=== PATIENT | female | born 1945 | race Caucasian/White ===

== ENCOUNTER 2021-07-22 12:22 | Emergency (ER) | payer MEDICARE, OTHER ==
[2021-07-22] MEDS ORDERED: Sodium Chloride 0.9% 10 ML Syringe FLUSH PRN (12:42)
[2021-07-22] MEDS ORDERED: Lidocaine 2% Viscous Solution 15 ML Cup PO ONE (12:54)
[2021-07-22] MEDS ORDERED: Lidocaine 1% 30 ML SDV INJECT ONE (12:56)
--- NOTE | 2021-07-22 13:07 | EDM.PDOC ---
ED HPI GENERAL MEDICAL PROBLEM - General Chief Complaint: Headache Stated Complaint: FLU SYMPTOMS Time Seen by Provider: 07/22/21 12:40 Source of Information: Reports: Patient History Limitations: Reports: No Limitations - History of Present Illness INITIAL COMMENTS - FREE TEXT/NARRATIVE: 75 y/o F c/o 9/10 severe frontal knight for 1 week as well as R upper quad abd pn for the same duration. Has been vomiting daily and unable to keep anything down. Is fully vaccinated with Pfizer. The Knight is sharp bilateral over the frontal bone, constant, non radiating, no photophobia. No similar hx in the past. Was seen at [facility] by Tiffanie Dejesus and scheduled for an MRI next week. Abd pn is sharp constant, R upper quad, no change when eating, non radiating. Pt still has her gall bladder. Reports intermittent constipation and diarrhea. Urine has also been foul smelling lately. Pt reports incontinence of urine for years now. Headache Pain Score (Numeric/FACES): 10 - Related Data Allergies Allergy/AdvReac Type Severity Reaction Status Date / Time No Known Allergies Allergy Verified 07/22/21 12:36 Home Meds: Home Meds Chlorthalidone 12.5 mg PO DAILY 07/22/21 [History] LORazepam [Ativan] 0.5 mg PO ASDIRECTED 07/22/21 [History] Omeprazole 20 mg PO ASDIRECTED 07/22/21 [History] Zolpidem [Ambien] 5 mg PO BEDTIME 07/22/21 [History] Past Medical History - Past Health History Medical/Surgical History: Denies Medical/Surgical History Cardiovascular History: Reports: Hypertension Gastrointestinal History: Reports: GERD Psychiatric History: Reports: Anxiety Social & Family History - Tobacco Use Tobacco Use Status *Q: Unknown Ever Used Tobacco - Caffeine Use Caffeine Use: Reports: Coffee - Recreational Drug Use Recreational Drug Use: No ED ROS GENERAL - Review of Systems Review Of Systems: Comprehensive ROS is negative, except as noted in HPI. 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.) Nose: Normal Inspection, Normal Mucosa, No Blood Throat/Mouth: Normal Inspection, Normal Lips, Normal Teeth, Normal Gums, Normal Oropharynx, Normal Voice, No Airway Compromise Head Exam: Atraumatic, Normocephalic Neck: Supple Respiratory/Chest: No Respiratory Distress, Lungs Clear, Normal Breath Sounds, No Accessory Muscle Use, Chest Non-Tender Cardiovascular: Normal Peripheral Pulses, Regular Rate, Rhythm, No Edema, No Gallop, No JVD, No Murmur, No Rub GI/Abdominal: Soft, Tender (R upper quad, no organomegally) (Female) Exam: Deferred Rectal (Female) Exam: Deferred Neuro Exam (Abbreviated): Alert, Oriented, CN II-XII Intact, Normal Cognition, Normal Gait, Normal Reflexes, No Motor/Sensory Deficits Back Exam: Normal Inspection, Full Range of Motion, NT Extremities: Normal Inspection, Normal Range of Motion, Non-Tender, No Pedal Edema, Normal Capillary Refill Psychiatric: Normal Affect, Normal Mood Skin Exam: Warm, Dry, Intact, Normal Color, No Rash #1 Interpretation EKG Date: 07/22/21 Time: 12:55 Rhythm: NSR [place]: LAD-Left [place] Deviation P-Wave: Present QRS: Normal ST-T: Normal QT: Normal Course - Vital Signs Last Recorded V/S: Last Vital Signs Temp 97.1 F 07/22/21 12:32 Pulse 75 07/22/21 12:32 Resp 16 07/22/21 12:32 BP 140/76 07/22/21 12:32 Pulse Ox 99 07/22/21 12:32 - Orders/Labs/Meds Orders: Active Orders 24 hr Category Date Time Status Peripheral IV Insertion Adult [OM.PC] Routine Oth 07/22/21 12:43 Ordered Labs: Laboratory Tests 07/22/21 07/22/21 07/22/21 Range/Units 12:29 13:01 13:01 WBC 6.9 (5.0-10.0) 10^3/uL RBC 4.56 (4.2-5.4) 10^6/uL Hgb 13.8 (12.0-16.0) g/dL Hct 39.2 (37.0-47.0) % MCV 86.0 (80-100) fL MCH 30.3 (27.0-34.0) pg MCHC 35.2 H (33.0-35.0) g/dL Plt Count 330 (150-450) 10^3/uL Neut % (Auto) 67.7 (42.2-75.2) % Lymph % (Auto) 22.7 (20.5-50.1) % [place] % (Auto) 8.6 H (2-8) % Eos % (Auto) 0.9 L (1.0-3.0) % Baso % (Auto) 0.1 (0.0-1.0) % Sodium 134 L (136-145) mmol/L Potassium 3.4 L (3.5-5.1) mmol/L Chloride 97 L (98-107) mmol/L Carbon Dioxide 28 (21-32) mmol/L Anion Gap 12.4 (7-13) mEq/L BUN 12 (7-18) mg/dL Creatinine 0.71 (0.55-1.02) mg/dL Est Cr Clr Drug Dosing 71.19 mL/min Estimated GFR (MDRD) > 60 BUN/Creatinine Ratio 16.9 (No establ ref range) Glucose 101 H (70-99) mg/dL Lactic Acid (0.4-2.0) mmol/L Calcium 10.0 (8.5-10.1) mg/dL Phosphorus 2.9 (2.6-4.7) mg/dL Magnesium 1.7 L (1.8-2.4) mg/dL Total Bilirubin 0.5 (0.2-1.0) mg/dL AST 27 (15-37) U/L ALT 40 (14-59) U/L Alkaline Phosphatase 63 (46-116) U/L Lactate Dehydrogenase 231 (81-234) U/L C-Reactive Protein < 0.2 (0.0-0.9) mg/dL Total Protein 7.2 (6.4-8.2) g/dL Albumin 4.0 (3.4-5.0) g/dL Globulin 3.2 Albumin/Globulin Ratio 1.3 TSH, Ultra Sensitive 1.03 (0.36-3.74) uIU/mL SARS-CoV-2 RNA (RUSS) Negative (NEGATIVE) 07/22/21 Range/Units 13:01 WBC (5.0-10.0) 10^3/uL RBC (4.2-5.4) 10^6/uL Hgb (12.0-16.0) g/dL Hct (37.0-47.0) % MCV (80-100) fL MCH (27.0-34.0) pg MCHC (33.0-35.0) g/dL Plt Count (150-450) 10^3/uL Neut % (Auto) (42.2-75.2) % Lymph % (Auto) (20.5-50.1) % [place] % (Auto) (2-8) % Eos % (Auto) (1.0-3.0) % Baso % (Auto) (0.0-1.0) % Sodium (136-145) mmol/L Potassium (3.5-5.1) mmol/L Chloride (98-107) mmol/L Carbon Dioxide (21-32) mmol/L Anion Gap (7-13) mEq/L BUN (7-18) mg/dL Creatinine (0.55-1.02) mg/dL Est Cr Clr Drug Dosing mL/min Estimated GFR (MDRD) BUN/Creatinine Ratio (No establ ref range) Glucose (70-99) mg/dL Lactic Acid 0.6 (0.4-2.0) mmol/L Calcium (8.5-10.1) mg/dL Phosphorus (2.6-4.7) mg/dL Magnesium (1.8-2.4) mg/dL Total Bilirubin (0.2-1.0) mg/dL AST (15-37) U/L ALT (14-59) U/L Alkaline Phosphatase (46-116) U/L Lactate Dehydrogenase (81-234) U/L C-Reactive Protein (0.0-0.9) mg/dL Total Protein (6.4-8.2) g/dL Albumin (3.4-5.0) g/dL Globulin Albumin/Globulin Ratio TSH, Ultra Sensitive (0.36-3.74) uIU/mL SARS-CoV-2 RNA (RUSS) (NEGATIVE) Meds: Medications Discontinued Medications Generic Name Dose Route Start Last Admin Trade Name Freq PRN Reason Stop Dose Admin Sodium Chloride 1,000 mls @ 999 mls/hr 07/22/21 14:58 07/22/21 15:07 Normal Saline IV 07/22/21 15:58 999 mls/hr .BOLUS ONE Administration Iopamidol 100 ml 07/22/21 15:49 Iopamidol 612 Mg/Ml 100 Ml Bottle IVPUSH 07/22/21 15:50 ONETIME ONE Ketorolac Tromethamine 30 mg 07/22/21 14:58 07/22/21 15:07 Ketorolac 30 Mg/Ml Sdv IVPUSH 07/22/21 14:59 30 mg ONETIME ONE Administration Lidocaine HCl 15 ml 07/22/21 12:54 07/22/21 13:55 Lidocaine 2% Viscous Solution 15 Ml Cup PO 07/22/21 12:55 15 ml ONETIME ONE Administration Lidocaine HCl 30 ml 07/22/21 12:56 07/22/21 13:55 Lidocaine 1% 30 Ml Sdv INJECT 07/22/21 12:57 30 ml ONETIME ONE Administration Metoclopramide HCl 10 mg 07/22/21 14:31 07/22/21 14:43 Metoclopramide 10 Mg/2 Ml Sdv IVPUSH 07/22/21 14:32 10 mg ONETIME ONE Administration Ondansetron HCl 4 mg 07/22/21 14:30 07/22/21 14:43 Ondansetron 4 Mg/2 Ml Sdv IVPUSH 07/22/21 14:31 4 mg ONETIME ONE Administration Sodium Chloride 10 ml 07/22/21 12:42 07/22/21 15:05 Sodium Chloride 0.9% 10 Ml Syringe FLUSH 10 ml ASDIRECTED PRN Administration Keep Vein Open - Re-Assessments/Exams Free Text/Narrative Re-Assessment/Exam: 07/22/21 16:48 I discussed the pts labs, exam, ekg and CTs with her. I explained that the CT findings recommenced an MRI for further workup. Radiology visited with the pt and scheduled her MRI for Sunday. 07/22/21 16:52 The pt feels much better after the medications and feels safe to go home. Departure - Departure Time of Disposition: 16:52 Disposition: Home, Self-Care 01 Condition: Good Clinical Impression: Migraine Qualifiers: Migraine type: unspecified Status migrainosus presence: without status migrainosus Intractability: not intractable Qualified Code(s): G43.909 - Migraine, unspecified, not intractable, without status migrainosus - Discharge Information *PRESCRIPTION DRUG MONITORING PROGRAM REVIEWED*: Not Applicable *COPY OF PRESCRIPTION DRUG MONITORING REPORT IN PATIENT CB: Not Applicable Instructions: Migraine Headache, [id number] Referrals: Tiffanie Chapman NP [Primary Care Provider] - Forms: ED Department Discharge Additional Instructions: RX: Reglan Return to the hospital Sunday for your scheduled MRI. If any new symptoms or concerns develop contact your primary care facility or return to the ER. Sepsis Event Note (ED) - Evaluation Sepsis Screening Result: No Definite Risk - My Orders Last 24 Hours: My Active Orders 07/22/21 12:43 Peripheral IV Insertion Adult [OM.PC] Routine - Assessment/Plan Last 24 Hours: My Active Orders 07/22/21 12:43 Peripheral IV Insertion Adult [OM.PC] Routine
[2021-07-22 13:34] LABS: ANION GAP 12.4 mEq/L (7-13); CHLORIDE,CL 97 mmol/L (98-107); SODIUM,NA 134 mmol/L (136-145)
[2021-07-22] MEDS ORDERED: Ondansetron 4 MG/2 ML SDV IVPUSH ONE (14:30)
[2021-07-22] MEDS ORDERED: Metoclopramide 10 MG/2 ML SDV IVPUSH ONE (14:31)
[2021-07-22] MEDS ORDERED: Sodium Chloride 0.9% 1,000 ML IV ONE (14:58)
[2021-07-22] MEDS ORDERED: Ketorolac 30 MG/ML SDV IVPUSH ONE (14:58)
--- NOTE | 2021-07-22 14:59 | CT ---
EXAMINATION: Head wo Cont SEX: Female AGE: 75 years CLINICAL HISTORY: 75-year-old hypertensive female with severe ("worst") frontal headache. No known trauma but some memory impairment. No comparison CT or MRI exams immediately available at this institution. Scan technique: Volume acquisition of data emergency unenhanced CT scan of the head and brain obtained with patient lying supine on the Siemens multi slice CT scanner [place], [place]. All data archived in the PACS system for storage, reformatting axial/sagittal/coronal planes and study. Interpretation: Abnormal. 1. Uniformly thick bony calvarium. No sign of pathologic skeletal lesion, skull fracture, underlying brain contusion, or epidural/subdural hematoma. 2. Minimal cerebral cortical atrophy pattern consistent with age. 3. Underlying mirror-image normal ventricular system. No hydrocephalus. 4. No supratentorial or posterior fossa mass lesion. Cerebellum and brainstem unremarkable. Physiologic midline pineal and symmetric choroid plexus calcifications. 5.*Asymmetric, abnormal focus of decreased brain attenuation involving the periventricular white matter occipital lobe, posteriorly, in the left cerebral hemisphere (axial slice #22; coronal slice #26; sagittal slice #14) that most probably represents ischemic infarct but suggest some slight mass effect and recommend follow-up unenhanced MRI imaging. Any known primary malignancies? 6. There are additional, subtle, microvascular ischemic changes suggested throughout the periventricular white matter of both hemispheres. No sign of acute intracerebral, intraventricular or subarachnoid bleed. 7. Symmetric clear pneumatization of the paranasal and mastoid sinuses. No inflammatory changes.
[2021-07-22] MEDS ORDERED: Iopamidol 612 MG/ML 100 ML Bottle IVPUSH ONE (15:49)
--- NOTE | 2021-07-22 16:46 | CT ---
PROCEDURE INFORMATION: Exam: CT Head With Contrast Exam date and time: 07/22/2021 4:10 PM Age: 75 years old Clinical indication: Other: Severe migraine x 1 week, abn CT TECHNIQUE: Imaging protocol: Computed tomography of the head with intravenous contrast. Total images: 108 Radiation optimization: All CT scans at this facility use at least one of these dose optimization techniques: automated exposure control; mA and/or kV adjustment per patient size (includes targeted exams where dose is matched to clinical indication); or iterative reconstruction. Contrast material: ISOVUE 300; Contrast volume: 50 ml; Contrast route: INTRAVENOUS (IV); COMPARISON: CT Head wo Cont 07/22/2021 2:25 PM FINDINGS: Brain: Deep white matter hypodensity compatible with chronic small vessel ischemic change. Cerebral ventricles: Unremarkable. No ventriculomegaly. Bones/joints: Unremarkable. No acute fracture. Paranasal sinuses: Visualized sinuses are unremarkable. No fluid levels. Mastoid air cells: Visualized mastoid air cells are well aerated. Soft tissues: Unremarkable. IMPRESSION: 1. No definite acute intracranial process. No definite abnormal enhancing mass. 2. MRI imaging would be more sensitive in the detection of acute ischemia or underlying cerebral masses.
== END 2021-07-22 17:11 | disposition home or self-care (01) ==
LOC: DL.ED 12:22
DX: G43.909 Migraine, unspecified, not intractable, without status migrainosus (principal); R10.11 Right upper quadrant pain; I10 Essential (primary) hypertension; K21.9 Gastro-esophageal reflux disease without esophagitis; Z79.899 Other long term (current) drug therapy; Z20.822 Contact with and (suspected) exposure to COVID-19
CPT/HCPCS: 36415; 70450; 70460; 80053; 83605; 83615; 83735; 84100; 84443; 85025; 86140; 93005; 96361; 96374; 96375; 99284; A9270; J1885; J2405; J2765; J7030; Q9967; U0002

== ENCOUNTER 2021-08-09 05:31 | Day surgery (SDC) | payer MEDICARE, OTHER ==
[~2021-08-09 05:31] MED LIST: Dextrose 5%-0.45% NaCl 1,000 ML IV SCH
[2021-08-09] MEDS ORDERED: fentaNYL 100 MCG/2 ML SDV ONE (05:46)
[2021-08-09] MEDS ORDERED: Midazolam 1 MG/ML 2 ML SDV ONE (05:47)
[2021-08-09] MEDS ORDERED: fentaNYL 100 MCG/2 ML SDV IV ONE ×2 (06:33→06:34)
[2021-08-09] MEDS ORDERED: Midazolam 1 MG/ML 2 ML SDV IV ONE ×2 (06:34→06:35)
--- NOTE | 2021-08-09 07:20 | OR ---
DATE: 08/09/2021 PROCEDURES: Esophagogastroduodenoscopy and multiple pinch biopsies. INSTRUMENT USED: [id number] Olympus video panendoscope. PREMEDICATIONS: No oral or topical anesthesia used. Fentanyl 100 mcg intravenous, Versed 3 mg intravenous. Nasal O2 cannula. The procedure was done under pulse oximetry, BP recording, and cardiac monitoring. INDICATIONS: The patient with persistent multiple abdominal symptoms including pain unexplained and not responsive to medical measures, on high-dose PPI. Esophagogastroduodenoscopy is performed for detection of any active erosive lesions, Mccurdy esophagus and/or malignancy also under consideration, H. pylori status to be determined, and endoscopic hemostasis therapy if needed. PROCEDURE IN DETAIL: The scope was passed with ease. Adequate visualization of the esophagus was made from proximal to distal areas. No upper esophageal lesions identified. No distal esophageal stricture. No uphill or downhill esophageal varices. No Apurva-Dsouza tear. No evidence of erosive esophagitis by Bartholomew criteria. No esophageal polyp or tumor mass identified. Z-line was seen at around 40 cm distal to the oral verge. No proximal gastric varices noted. Gastric fundus examination by retroflexion showed no polypoid lesions. No gastric ulcer, malignant mass, or vascular ectasia identified. Scattered gastric antral erosions were noted without bleeding from them. Duodenal bulb showed no ulcer. Visualized second part of the duodenum was unremarkable. Multiple pinch biopsies were taken from the gastric antrum and proximal body and sent for PyloriTek test for H. pylori, and if negative in an hour, tissue was to be sent for histopathology. No bleeding was noted from any of the visualized areas at the completion of examination. Photographs were taken of the duodenal bulb, gastric antrum, fundus, and distal esophagus. IMPRESSION: Gastric antral erosions. The patient tolerated the procedure well. [facility] /[id number]
== END 2021-08-09 08:52 | disposition home or self-care (01) ==
LOC: DL.ENDO 05:31
PROVIDERS: ATTEND Internal Medicine Gastroenterology
DX: K25.9 Gastric ulcer, unspecified as acute or chronic, without hemorrhage or perforation (principal); E78.00 Pure hypercholesterolemia, unspecified; G47.00 Insomnia, unspecified; H90.41 Sensorineural hearing loss, unilateral, right ear, with unrestricted hearing on the contralateral side; K21.9 Gastro-esophageal reflux disease without esophagitis; I10 Essential (primary) hypertension; Z98.890 Other specified postprocedural states; Z91.040 Latex allergy status
CPT/HCPCS: 43239; 87077; J2250; J3010; J7042

== ENCOUNTER 2021-09-15 06:02 | Day surgery (SDC) | payer MEDICARE, OTHER ==
[~2021-09-15 06:02] MED LIST changes: +Sodium Chloride 0.9% 10 ML Syringe FLUSH SCH
[2021-09-15] MEDS ORDERED: fentaNYL 100 MCG/2 ML SDV IV ONE ×3 (06:03→07:55)
[2021-09-15] MEDS ORDERED: Midazolam 1 MG/ML 2 ML SDV IV ONE ×6 (06:03→08:07)
[2021-09-15] MEDS ORDERED: Midazolam 1 MG/ML 2 ML SDV ONE (06:09)
[2021-09-15] MEDS ORDERED: fentaNYL 100 MCG/2 ML SDV ONE (06:10)
--- NOTE | 2021-09-15 08:58 | OR ---
DATE: 09/15/2021 PROCEDURE: Total colonoscopy. INSTRUMENT USED: [id number] Olympus video colonoscope. PREMEDICATIONS: Fentanyl 100 mcg intravenous, Versed 3.5 mg intravenous. The procedure was done under pulse oximetry, BP recording, and panel monitor. Nasal O2 cannula. INDICATION: The patient with persistent constipation and abdominal pain, unexplained and not responsive to medical measures. Colonoscopic examination is done for detection of any polypoid lesions and removal, endoscopic hemostasis therapy if indicated. DESCRIPTION OF PROCEDURE: Initial rectal exam was unremarkable. Rigid anoscopy showed small internal hemorrhoids without bleeding from them. The colonoscope was passed with ease up to the ileocecal area. Photographs were taken of the normal-appearing cecum, identified by landmarks of appendiceal orifice and double-bulged ileocecal folds. No bleeding was noted from any of the visualized areas at the commencement of examination. The bowel preparation was found to be adequate, Wakefield scale 2 in right and left colon, 3 in transverse colon, total score 7. No stricture. No vascular ectasia. No large isolated ulcerations seen. No evidence of diffuse inflammatory bowel disease in the form of friability, contact bleeding, or ulcerations. No polyp or tumor mass identified. Second look of the right colon was made. Probing the proximal sides of folds and flexures using adequate distention and clearing up the stool material, withdrawal of the scope was made, cecum to rectum time over 9 minutes. No bleeding was noted from any of the visualized areas at the completion of examination. IMPRESSION: Internal hemorrhoids. The patient tolerated the procedure well. [facility] /[id number]
== END 2021-09-15 10:24 | disposition home or self-care (01) ==
LOC: DL.ENDO 06:02
PROVIDERS: ATTEND Internal Medicine Gastroenterology
DX: K58.1 Irritable bowel syndrome with constipation (principal); K64.8 Other hemorrhoids; E78.00 Pure hypercholesterolemia, unspecified; G47.00 Insomnia, unspecified; F41.1 Generalized anxiety disorder; K21.9 Gastro-esophageal reflux disease without esophagitis
CPT/HCPCS: 45378; J2250; J3010; J7042

== ENCOUNTER 2024-11-18 12:51 | Emergency (ER) | payer MEDICARE, OTHER ==
[2024-11-18] MEDS ORDERED: Sodium Chloride 0.9% 10 ML Syringe FLUSH PRN (13:37)
[2024-11-18] MEDS: Lactated Ringers 1,000 ML IV ONE (13:58)
[2024-11-18 14:03] LABS: BASOPHILS PERCENT AUTO 0.1 % (0.0-1.0); EOSINOPHILS PERCENT AUTO 0.1 % (1.0-3.0); HEMATOCRIT 37.6 % (37.0-47.0); HEMOGLOBIN 13.4 g/dL (12.0-16.0); MEAN CORPUSCULAR HEMOGLOBIN 29.5 pg (27.0-34.0); MEAN CORPUSCULAR HGB CONC 35.6 g/dL (33.0-35.0); MEAN CORPUSCULAR VOLUME 82.8 fL (80-100); MONOCYTES PERCENT AUTO 5.8 % (2-8); PLATELET COUNT,PLT 362 10^3/uL (150-450); RED BLOOD CELL COUNT 4.54 10^6/uL (4.2-5.4); WHITE BLOOD CELL COUNT,WBC 8.4 10^3/uL (5.0-10.0)
[2024-11-18 14:23] LABS: A/G RATIO 1.2; ALANINE AMINOTRANSFERASE,ALT 37 U/L (14-59); ALBUMIN 4.1 g/dL (3.4-5.0); ALKALINE PHOSPHATASE 61 U/L (46-116); ASPARTATE AMNIOTRANSFERASE,AST 31 U/L (15-37); BILIRUBIN TOTAL 0.7 mg/dL (0.2-1.0); BLOOD UREA NITROGEN,BUN 11 mg/dL (7-18); BUN/CREATININE RATIO 14.3 (No establ ref range); CALCIUM 9.8 mg/dL (8.5-10.1); CREATININE 0.77 mg/dL (0.55-1.02); EST CRCL DRUG DOSING (CG) 50.61 mL/min; GLUCOSE RANDOM 127 mg/dL (70-99); LIPASE 14 U/L (16-77); MAGNESIUM 1.4 mg/dL (1.8-2.4); PROTEIN TOTAL,TP 7.5 g/dL (6.4-8.2)
[2024-11-18 14:32] LABS: CARBON DIOXIDE,CO2 26 mmol/L (21-32); CHLORIDE,CL 87 mmol/L (98-107); SODIUM,NA 126 mmol/L (136-145)
[2024-11-18] MEDS: HYDROmorphone 1 MG/ML Syringe IVPUSH ONE (14:32)
[2024-11-18] MEDS: Ondansetron 4 MG/2 ML SDV IVPUSH ONE (14:37)
[2024-11-18] MEDS: Metoclopramide 10 MG/2 ML SDV IVPUSH ONE (14:37)
[2024-11-18 14:38] LABS: C-REACTIVE PROTEIN < 0.50 ng/dL (<=0.50); ESTIMATED GFR 79 mL/min (>=60)
[2024-11-18] MEDS: Ondansetron 4 MG Tab.DIS PO ONE (14:40)
[2024-11-18 14:49] LABS: INR 0.9 (0.9-1.2); PROTHROMBIN TIME 9.7 SEC (9.0-12.0); PTT,PARTIAL THROMBOPLSTIN TIME 25.6 SEC (22.0-34.0)
[2024-11-18] MEDS: Iopamidol 612 MG/ML 100 ML Bottle IVPUSH ONE ×2 (15:52→17:22)
[2024-11-18] MEDS: NS with KCl 40mEq 1,000 ML IV SCH (16:24)
[2024-11-18] MEDS: Promethazine 25 MG/ML SDV IM ONE (16:31)
[2024-11-18 20:57] LABS: ANION GAP 12.5 mEq/L (7-13); CALCIUM 9.1 mg/dL (8.5-10.1); CREATININE 0.88 mg/dL (0.55-1.02); EST CRCL DRUG DOSING (CG) 44.29 mL/min; POTASSIUM,K 3.5 mmol/L (3.5-5.1)
[2024-11-18] MEDS: Take Home: Promethazine 25 MG, 4 Tab Pack PO ONE (21:36)
== END 2024-11-18 21:43 | disposition home or self-care (01) ==
LOC: DL.ED 12:51
DX: K52.9 Noninfective gastroenteritis and colitis, unspecified (principal); E87.6 Hypokalemia; E83.42 Hypomagnesemia; I10 Essential (primary) hypertension; E78.00 Pure hypercholesterolemia, unspecified; E66.9 Obesity, unspecified; Z79.899 Other long term (current) drug therapy; Z79.2 Long term (current) use of antibiotics; Z91.040 Latex allergy status; Z68.26 Body mass index [BMI] 26.0-26.9, adult
CPT/HCPCS: 36415; 74177; 80048; 80053; 83605; 83690; 83735; 85025; 85610; 85730; 86140; 87040; 96361; 96365; 96366; 96372; 96375; 99285; A9270; J1171; J2405; J2550; J2765; J3480; J7120; Q9967; 99284

== ENCOUNTER 2024-12-04 15:15 | Emergency (ER) | payer MEDICARE, OTHER ==
[2024-12-04] MEDS ORDERED: Sodium Chloride 0.9% 10 ML Syringe FLUSH PRN (15:27)
[2024-12-04] MEDS: Ondansetron 4 MG/2 ML SDV IVPUSH ONE (15:57)
[2024-12-04] MEDS: Sodium Chloride 0.9% 500 ML IV ONE ×2 (15:58→17:14)
[2024-12-04 16:16] LABS: BASOPHILS PERCENT AUTO 0.1 % (0.0-1.0); EOSINOPHILS PERCENT AUTO 1.1 % (1.0-3.0); HEMATOCRIT 36.8 % (37.0-47.0); LYMPHOCYTES PERCENT AUTO 23.5 % (20.5-50.1); MEAN CORPUSCULAR HEMOGLOBIN 29.5 pg (27.0-34.0); MEAN CORPUSCULAR HGB CONC 35.3 g/dL (33.0-35.0); MEAN CORPUSCULAR VOLUME 83.6 fL (80-100); MONOCYTES PERCENT AUTO 10.8 % (2-8); NEUTROPHILS PERCENT AUTO 64.5 % (42.2-75.2); PLATELET COUNT,PLT 327 10^3/uL (150-450); WHITE BLOOD CELL COUNT,WBC 8.4 10^3/uL (5.0-10.0)
[2024-12-04 16:47] LABS: A/G RATIO 1.2; ALANINE AMINOTRANSFERASE,ALT 30 U/L (14-59); ALBUMIN 3.8 g/dL (3.4-5.0); ALKALINE PHOSPHATASE 58 U/L (46-116); ASPARTATE AMNIOTRANSFERASE,AST 17 U/L (15-37); BILIRUBIN TOTAL 0.6 mg/dL (0.2-1.0); BLOOD UREA NITROGEN,BUN 15 mg/dL (7-18); BUN/CREATININE RATIO 13.9 (No establ ref range); CALCIUM 10.1 mg/dL (8.5-10.1); CARBON DIOXIDE,CO2 28 mmol/L (21-32); CHLORIDE,CL 92 mmol/L (98-107); CREATININE 1.08 mg/dL (0.55-1.02); GLUCOSE RANDOM 100 mg/dL (70-99); MAGNESIUM 1.5 mg/dL (1.8-2.4); SODIUM,NA 130 mmol/L (136-145)
[2024-12-04 16:49] LABS: ESTIMATED GFR 53 mL/min (>=60)
[2024-12-04] MEDS: Iopamidol 612 MG/ML 100 ML Bottle IVPUSH ONE (17:00)
[2024-12-04] MEDS: Magnesium Sulf/Wat 2 GM/50 mL 2 GM in Premix Bag 1 BAG IV ONE (17:15)
[2024-12-04 17:39] LABS: APPEARANCE,URINE CLEAR (CLEAR); BILIRUBIN,URINE NEGATIVE (NEGATIVE); COLOR,URINE YELLOW (YELLOW); GLUCOSE,URINE NEGATIVE (NEGATIVE); KETONES,URINE TRACE (NEGATIVE); LEUKOCYTE ESTERASE,URINE SMALL (NEGATIVE); NITRITE,URINE NEGATIVE (NEGATIVE); OCCULT BLOOD,URINE NEGATIVE (NEGATIVE); PROTEIN,URINE NEGATIVE (NEGATIVE); UROBILINOGEN,URINE 0.2 mg/dL (0.2-1.0)
[2024-12-04 17:52] LABS: BACTERIA,URINE FEW /HPF (0-FEW/HPF); EPITHELIAL CELLS,URINE FEW /HPF (NOT SEEN); RBC,URINE 0-5 /HPF (0-5); WBC,URINE 30-40 /HPF (0-5/HPF)
[2024-12-04] MEDS: Promethazine 25 MG Supp RECTAL ONE (19:17)
[2024-12-04] MEDS: Metoclopramide 10 MG Tab PO ONE (19:18)
[2024-12-04] MEDS: Take Home: Potassium Chloride 10 MEQ Tab, 10 Tab Pack PO ONE (19:18)
[2024-12-04] MEDS: Potassium Chloride 10% 20 MEQ/15 ML Soln 15 ML UD Cup PO STA (19:19)
== END 2024-12-04 19:33 | disposition home or self-care (01) ==
LOC: DL.ED 15:15
DX: K52.9 Noninfective gastroenteritis and colitis, unspecified (principal); E87.6 Hypokalemia; E83.42 Hypomagnesemia; I10 Essential (primary) hypertension; E87.1 Hypo-osmolality and hyponatremia; E78.00 Pure hypercholesterolemia, unspecified; K21.9 Gastro-esophageal reflux disease without esophagitis; Z91.040 Latex allergy status; Z79.899 Other long term (current) drug therapy
CPT/HCPCS: 36415; 74177; 80053; 81001; 83605; 83735; 85025; 87086; 96361; 96365; 96366; 96375; 99284; 99284-25; A9270-GY; J2405; J3475; J7040; Q9967